=== PATIENT | female | born 1950 | race Hispanic/Latino ===

== ENCOUNTER 2022-08-30 10:14 | Observation (INO) | payer OTHER, MEDICARE ==
[~2022-08-30] VITALS: Ht 165.1 cm; Wt 91.8 kg
[2022-08-30 10:42] LABS: BASOPHILS % (AUTO) 0.7 % (0.0-5.0); EOSINOPHILS % (AUTO) 1.1 % (0.0-8.0); HEMATOCRIT 37.6 % (36-48); LYMPHOCYTES % (AUTO) 17.6 % (21.0-51.0); MEAN CORPUSCULAR HEMOGLOBIN 28.3 pg (27.0-33.0); MEAN CORPUSCULAR HGB CONC 32.2 g/dL (32.0-36.0); MEAN CORPUSCULAR VOLUME 88.1 fL (79-99); MONOCYTES % (AUTO) 6.3 % (3.0-13.0); NEUTROPHILS % (AUTO) 73.9 % (40.0-77.0); PLATELET COUNT (AUTO) 251 K/uL (130-400); RED BLOOD CELL COUNT(AUTO) 4.27 MIL/uL (4.00-5.50); RED CELL DISTRIBUTION WIDTH 17.1 % (11.0-15.5); WHITE BLOOD COUNT (AUTO) 5.7 K/uL (4.8-10.8)
[2022-08-30 11:10] LABS: ALBUMIN 3.1 g/dL (3.5-5.0); MAGNESIUM 2.4 mg/dL (1.80-2.40); POTASSIUM 4.2 mmol/L (3.5-5.1); TOTAL PROTEIN, SERUM 7.1 g/dL (6.0-8.3)
[2022-08-30 11:16] LABS: CREATININE 8.6 mg/dL (0.5-1.5)
[2022-08-30] MEDS ORDERED: MAG/ALUM/SIMETH 30 ML UDCUP PO ONE (11:30)
[2022-08-30] MEDS ORDERED: MAG/ALUM/SIMETH 30 ML UDCUP ONE (11:32)
[2022-08-30] MEDS ORDERED: NITROGLYCERIN 0.4 MG SL TAB SL ONE (11:32)
[2022-08-30] MEDS: NITROGLYCERIN 0.4 MG SL TAB SL PRN ×2 (11:35→11:40)
[2022-08-30] MEDS ORDERED: NITROGLYCERIN 0.4 MG SL TAB SL PRN (13:00)
[2022-08-30] MEDS ORDERED: IPRATROPIUM/ALBUTEROL SULFATE 3 ML SOLUTION IH PRN (13:30)
[2022-08-30] MEDS ORDERED: ACETAMINOPHEN 500 MG TABLET PO PRN (13:30)
[2022-08-30] MEDS ORDERED: ASPIRIN 81MG CHEW TAB PO SCH (13:30)
[2022-08-30] MEDS ORDERED: LACTULOSE 20 GM/30 ML UDCUP PO PRN (13:30)
[2022-08-30] MEDS ORDERED: HYDROMORPHONE 0.5 MG SYG (0.5MG/0.5ML) IVP PRN (13:30)
[2022-08-30 13:37] LABS: HEMOGLOBIN A1C 5.3 % (4.0-6.0)
[2022-08-30] MEDS: PANTOPRAZOLE 40 MG TAB DR PO SCH (14:08)
[2022-08-30 14:19] LABS: CHOLESTEROL 188 mg/dL (<200); HDL CHOLESTEROL 57 mg/dL (35-85); LDL DIRECT 93 mg/dL (0-99); THYROID STIMULATING HORMONE 2.62 uIU/mL (0.36-3.74); TRIGLYCERIDES 174 mg/dL (30-200)
[2022-08-30] MEDS ORDERED: DONE5TAB33 PO (14:21)
[2022-08-30] MEDS ORDERED: ATOR40TA71 PO (14:21)
[2022-08-30] MEDS ORDERED: OMEP40CA21 PO (14:21)
[2022-08-30] MEDS ORDERED: FURO20TA4 PO (14:21)
[2022-08-30] MEDS ORDERED: CALC0.253 PO (14:21)
[2022-08-30] MEDS ORDERED: METO25 PO (14:21)
[2022-08-30 14:32] LABS: CRP QUANTITATIVE < 2.00 mg/L (0.00-9.0)
[2022-08-30] MEDS ORDERED: GABA-529 PO (14:54)
[2022-08-30] MEDS ORDERED: SEVE800 PO (14:54)
[2022-08-30 15:18] VITALS: BP 129/66
[2022-08-30] MEDS: SEVELAMER HCL 800 MG TABLET PO SCH (16:17)
[2022-08-30 19:01] VITALS: BP 123/53
[2022-08-30] MEDS ORDERED: ATORVASTATIN 40 MG TABLET PO SCH (21:00)
[2022-08-30] MEDS ORDERED: DONEPEZIL HCL 5 MG TAB PO SCH (21:00)
[2022-08-30] MEDS ORDERED: GABAPENTIN 100 MG CAPSULE PO SCH (21:00)
[2022-08-30] MEDS ORDERED: TERAZOSIN 2 MG CAPSULE PO SCH (21:00)
[2022-08-30] MEDS: METOPROLOL TARTRATE 25 MG TAB PO SCH (21:23)
[2022-08-30 23:29] VITALS: BP 127/69
[2022-08-31 03:12] VITALS: BP 118/49
[2022-08-31 04:09] LABS: BASOPHILS % (AUTO) 0.5 % (0.0-5.0); LYMPHOCYTES % (AUTO) 27.6 % (21.0-51.0); MEAN CORPUSCULAR HEMOGLOBIN 28.2 pg (27.0-33.0); MEAN CORPUSCULAR HGB CONC 31.9 g/dL (32.0-36.0); MEAN CORPUSCULAR VOLUME 88.2 fL (79-99); MONOCYTES % (AUTO) 9.5 % (3.0-13.0); NEUTROPHILS % (AUTO) 60.2 % (40.0-77.0); PLATELET COUNT (AUTO) 249 K/uL (130-400); RED BLOOD CELL COUNT(AUTO) 4.08 MIL/uL (4.00-5.50); RED CELL DISTRIBUTION WIDTH 16.5 % (11.0-15.5); WHITE BLOOD COUNT (AUTO) 5.9 K/uL (4.8-10.8)
[2022-08-31 04:11] LABS: ALBUMIN 2.8 g/dL (3.5-5.0); MAGNESIUM 2.4 mg/dL (1.80-2.40); POTASSIUM 3.7 mmol/L (3.5-5.1); TOTAL PROTEIN, SERUM 6.5 g/dL (6.0-8.3)
[2022-08-31 04:15] LABS: CREATININE 8.5 mg/dL (0.5-1.5)
[2022-08-31 06:22] VITALS: BP 129/66
[2022-08-31] MEDS ORDERED: ASPIRIN 81 MG EC TAB PO SCH (09:00)
[2022-08-31] MEDS ORDERED: METOPROLOL SUCCINATE 50 MG TAB.SR.24H PO SCH (09:00)
[2022-08-31] MEDS ORDERED: Vitamin B Complex/Vit C/Folic Acid PO SCH (09:00)
[2022-08-31] MEDS ORDERED: CALCITRIOL 0.25 MCG CAP PO SCH ×2 (09:00)
[2022-08-31] MEDS: METOPROLOL TARTRATE 25 MG TAB PO SCH (09:12)
[2022-08-31] MEDS: SEVELAMER HCL 800 MG TABLET PO SCH ×2 (09:13→12:00)
[2022-08-31] MEDS ORDERED: HEPARIN 5,000 UNIT VIAL SQ SCH (10:30)
[2022-08-31 12:00] VITALS: BP 152/66
[2022-08-31] MEDS ORDERED: SEVELAMER HCL 800 MG TABLET PO SCH (12:00)
[2022-08-31] MEDS: PANTOPRAZOLE 40 MG TAB DR PO SCH (14:44)
[2022-08-31 15:33] VITALS: BP 134/60
== END 2022-08-31 16:00 | disposition home or self-care (01) ==
LOC: EDH 10:14 → OBSVTOIN 12:33 → INTOOBSV 12:33 → EDHIP 12:33 → UNDOADMOB 12:33 → OBSVTOIN 13:08 → INTOOBSV 13:08 → EDHIP 13:08 → 2AH 14:06
PROVIDERS: ADMIT Internal Medicine; ATTEND Internal Medicine
DX: R07.89 Other chest pain (principal); Z20.822 Contact with and (suspected) exposure to COVID-19; I12.9 Hypertensive chronic kidney disease with stage 1 through stage 4 chronic kidney disease, or unspecified chronic kidney disease; E11.22 Type 2 diabetes mellitus with diabetic chronic kidney disease; N18.6 End stage renal disease; D63.1 Anemia in chronic kidney disease; E87.1 Hypo-osmolality and hyponatremia; E86.1 Hypovolemia; E78.5 Hyperlipidemia, unspecified; E21.3 Hyperparathyroidism, unspecified; K21.9 Gastro-esophageal reflux disease without esophagitis; I25.10 Atherosclerotic heart disease of native coronary artery without angina pectoris; E43 Unspecified severe protein-calorie malnutrition; N25.81 Secondary hyperparathyroidism of renal origin; Z79.899 Other long term (current) drug therapy; Z99.2 Dependence on renal dialysis
CPT/HCPCS: 99285; 83036; 84443; 82550 ×2; 83735 ×2; 83874 ×2; 84484 ×3; 80061; 80053 ×2; 85025 ×2; 85651; 87804 ×2; 83930; 86140; 36415 ×2; 87635; 71045; 93970; 93005; 84145; 96372; 93306; C9803; G0378 ×8; J1644